=== PATIENT | male | born 1980 | race Caucasian/White ===

== ENCOUNTER 2021-10-25 10:28 | Emergency (ER) | payer OTHER ==
[~2021-10-25] VITALS: Ht 167.6 cm; Wt 94.8 kg
[2021-10-25 10:35] VITALS: BP 134/77
--- NOTE | 2021-10-25 11:31 | NUR ---
pt ambulated to bed 12
--- NOTE | 2021-10-25 11:47 | NUR ---
pt c/o right rib pain s/p fall last week. denies loc head neck or back pain.
[2021-10-25] MEDS ORDERED: NAPR-54 PO (13:57)
[2021-10-25 14:25] VITALS: BP 121/65
== END 2021-10-25 14:33 | disposition home or self-care (01) ==
LOC: MED 10:28
DX: S20.211A Contusion of right front wall of thorax, initial encounter (principal); V00.131A Fall from skateboard, initial encounter; Y93.89 Activity, other specified; Y92.89 Other specified places as the place of occurrence of the external cause; Y99.8 Other external cause status; Z91.018 Allergy to other foods
CPT/HCPCS: 71101; 99283